=== PATIENT | female | born 1980 | race Two or more races ===

== ENCOUNTER 2022-11-19 03:32 | Emergency (ER) | payer BC, SELFPAY ==
[2022-11-19 03:38] VITALS: BP 137/97; PULSE 75; RESP 16; TEMP 36.8; O2SAT 99; BMI 43.0
--- NOTE | 2022-11-19 03:39 | ED_ITS ---
HPI - Dental/Oral General Chief complaint: Dental/Oral Stated complaint: DENTAL PAIN Time Seen by Provider: 11/19/22 03:39 History of Present Illness HPI Narrative: Patient presents to emergency department complaining of left lower dental pain over tooth 19. She states she had a cavity in 2 days ago she felt like the back part of it broke off. She is not having intense pain with air, high, or cold fluids. She has taken Motrin without any relief. She denies any facial swelling, or difficulty swallowing. She denies any fever, chills. She states she was at work and left because of the pain. She took Motrin at midnight. That has not given her enough relief. She is not able to see her dentist until 2 weeks from now. Related Data Previous Rx's Medication Instructions Recorded clindamycin HCl 300 mg capsule 300 mg PO Q8H 10 days #30 caps 11/19/22 hydrocodone 5 mg-acetaminophen 325 1 tab PO Q6H PRN pain 5 days #14 11/19/22 mg tablet tabs Allergies Allergy/AdvReac Type Severity Reaction Status Date / Time No Known Drug Allergies Allergy Verified 11/19/22 03:42 Review of Systems ROS Status of ROS 10 or more systems reviewed and unremarkable except as noted in history and below [facility] PFS Social History Smoking status: Never smoker Exam Narrative Exam Narrative: General: The patient is comfortable, alert and oriented x3, well appearing, non toxic in no apparent distress. Head: Atraumatic and normocephalic. Eyes: Normal conjunctiva ENT: The oropharynx is normal. No pharyngeal erythema, uvular edema, tonsillar exudates, asymmetry or trismus. Uvula is midline. Mouth is normal to inspection with the exception of a pain on percussion of the tooth #19 With evidence of dental caries and Dentin fracture.. There is no evidence of facial asymmetry or abscess formation. Floor of the mouth is soft. No tenderness in the submental or submandibular space. No tongue elevation or deviation. The patient has no evidence of periapical abscess, gingivitis or other acute pathology. Airway is patent. Neck: The neck demonstrates normal range of motion. No meningeals signs are present. No stridor. No masses or lymphandenopathy noted. Respiratory: No acute distress, lungs are clear to auscultation, no wheezing, rhonchi, or rales noted. No stridor or retractions are noted. Cardiovascular: Regular rate and rhythm Skin: The skin exam shows no evidence of rashes Neuro: Alert and oriented x4, normal speech Lymphatic: No cervical lymphadenopathy Constitutional Vital Signs, click to edit/add: Last Vital Signs Temp 98.3 F 11/19/22 03:38 Pulse 75 11/19/22 03:38 Resp 16 11/19/22 03:38 BP 137/97 H 11/19/22 03:38 Pulse Ox 99 11/19/22 03:38 O2 Del Method Room Air 11/19/22 03:38 Course Vital Signs Vital signs: Vital Signs Temperature 98.3 F 11/19/22 03:38 Pulse Rate 75 11/19/22 03:38 Respiratory Rate 16 11/19/22 03:38 Blood Pressure 137/97 H 11/19/22 03:38 Pulse Oximetry 99 11/19/22 03:38 Oxygen Delivery Method Room Air 11/19/22 03:38 Temperature 98.3 F 11/19/22 03:38 Pulse Rate 75 11/19/22 03:38 Respiratory Rate 16 11/19/22 03:38 Blood Pressure 137/97 H 11/19/22 03:38 Pulse Oximetry 99 11/19/22 03:38 Oxygen Delivery Method Room Air 11/19/22 03:38 MDM - Dental/Oral MDM Narrative Medical decision making narrative: Dental anesthesia was applied. Patient will be given a Onia to take at home when she arrives. She is advised not to drive or operate heavy machinery when taking Onia. She is to continue taking ibuprofen 800 mg every 8 hours as needed for pain. Given a prescription for clindamycin. She is stable for follow-up with dentist as an outpatient. I answered all questions. Discussed discharge instructions including standard anticipatory guidance and what should prompt a return to the emergency department, including if they get worse are not getting better or develops any new or concerning symptoms. I've given them specific time frame in which to follow-up, and who to follow-up with. The patient demonstrates understanding. Patient is nontoxic and stable for discharge with outpatient follow-up. This note was created with the assistance of a speech recognition program. Although the intention is to generate documents that actually reflects the content of the visit, no guarantees can be provided that every mistake has been identified and corrected by editing. Discharge Plan Discharge Chief Complaint: Dental/Oral Clinical Impression: Toothache, Fracture of tooth Patient Disposition: Home, Self-Care Time of Disposition Decision: 04:02 Condition: Good Mode of Transportation: Private Vehicle Prescriptions / Home Meds: New clindamycin HCl 300 mg capsule 300 mg PO Q8H 10 Days Qty: 30 0RF hydrocodone-acetaminophen 5-325 mg tablet 1 tab PO Q6H PRN (Reason: pain) 5 Days Qty: 14 0RF Instructions: Toothache (ED) Stand Alone Forms: Portal Instructions Referrals: Physician,Non-Staff, MD [Primary Care Provider] - 1 week
[2022-11-19] MEDS: BENZOCAINE 30 ML, lidocaine HCL 15 ML MM (04:25)
== END 2022-11-19 04:31 | disposition home or self-care (01) ==
PROVIDERS: Emergency Provider Emergency Medicine
DX: K08.89 Other specified disorders of teeth and supporting structures (principal); S02.5XXA Fracture of tooth (traumatic), initial encounter for closed fracture
CPT/HCPCS: 99283

== ENCOUNTER 2023-10-06 19:03 | Emergency (ER) | payer BC, SELFPAY ==
[2023-10-06 19:15] VITALS: BP 144/83; PULSE 90; TEMP 37; O2SAT 98; BMI 44.9
--- NOTE | 2023-10-06 19:19 | PC.NURSE ---
Red slightly raised rash to trunk and extremities, no oen areas, skin intacct.
--- NOTE | 2023-10-06 19:25 | ED_ITS ---
HPI - Allergic Reaction General Chief complaint: Allergic Reaction Stated complaint: RASH Time Seen by Provider: 10/06/23 19:22 Source: patient Mode of arrival: walk-in Limitations: no limitations History of Present Illness HPI narrative: patient presents complaining of rash that started on her arms and chest yesterday. Took Benadryl and feels it did not help and the rash has spread to her back. no dyspnea or throat symptoms. No nausea or vomiting Related Data Previous Rx's ?Medication ?Instructions ?Recorded clindamycin HCl 300 mg capsule 300 mg PO Q8H 10 days #30 caps 11/19/22 hydrocodone 5 mg-acetaminophen 325 1 tab PO Q6H PRN pain 5 days #14 11/19/22 mg tablet tabs Allergies Allergy/AdvReac Type Severity Reaction Status Date / Time No Known Drug Allergies Allergy Verified 10/06/23 19:15 Review of Systems ROS Status of ROS 10 or more systems reviewed and unremark able except as noted in history and below PFSH PFSH Social History Smoking status: Never smoker Exam Constitutional Vital Signs, click to edit/add: Last Vital Signs Temp 98.6 F 10/06/23 19:15 Pulse 90 10/06/23 19:15 Resp 18 10/06/23 19:15 BP 144/83 H 10/06/23 19:15 Pulse Ox 98 10/06/23 19:15 O2 Del Method Room Air 10/06/23 19:15 Common normals: no apparent distress, average body habitus, oriented x3, no limitations, healthy appearing, alert and well nourished [facility] Common normals: normocephalic and head/scalp atraumatic Eye Common normals: PERRL and EOMs intact bilaterally Respiratory Common normals: normal respiratory effort, no retractions, no use of accessory muscles and clear to auscultation bilaterally Cardio Common normals: regular rate, regular rhythm, S1 normal heart sound and S2 normal heart sound Extremity Other: spare erythematous 2-3mm macula lesion on her arms , V of her chest and her uper back Neuro Common normals: oriented x3, CN's II-XII intact bilaterally, moves all extremities and no focal motor deficits Psych Appearance: grossly normal Course Vital Signs Vital signs: Vital Signs Temperature 98.6 F 10/06/23 19:15 Pulse Rate 90 10/06/23 19:15 Respiratory Rate 18 10/06/23 19:15 Blood Pressure 144/83 H 10/06/23 19:15 Pulse Oximetry 98 10/06/23 19:15 Oxygen Delivery Method Room Air 10/06/23 19:15 Temperature 98.6 F 10/06/23 19:15 Pulse Rate 90 10/06/23 19:15 Respiratory Rate 18 10/06/23 19:15 Blood Pressure 144/83 H 10/06/23 19:15 Pulse Oximetry 98 10/06/23 19:15 Oxygen Delivery Method Room Air 10/06/23 19:15 MDM - Allergic Reaction MDM Narrative Medical decision making narrative: patient presents with rash that appears allergic. No systemic symptoms. Will treat with course of prednisone and recommend she follow up with her family d landy Discharge Plan Discharge Stand Alone Forms: Portal Instructions Chief Complaint: Allergic Reaction Clinical Impression: Urticaria Patient Disposition: Home, Self-Care Prescriptions / Home Meds: No Action clindamycin HCl 300 mg capsule 300 mg PO Q8H 10 Days Qty: 30 0RF hydrocodone-acetaminophen 5-325 mg tablet 1 tab PO Q6H PRN (Reason: pain) 5 Days Qty: 14 0RF Print Language: Malawian Instructions: Urticaria (ED) Additional Instructions: continue Benadryl 3 times a day and follow up with your doctor within the next 5 days Referrals: [facility] [Primary Care Provider] - 1 week
[2023-10-06] MEDS: PREDNISONE 20 MG TABLET 40 MG PO (19:38)
== END 2023-10-06 19:51 | disposition home or self-care (01) ==
PROVIDERS: Emergency Provider Internal Medicine
DX: L50.9 Urticaria, unspecified (principal)
CPT/HCPCS: 99283; J7512

== ENCOUNTER 2024-07-29 11:26 | Emergency (ER) | payer BC, SELFPAY ==
[2024-07-29 11:32] VITALS: BP 136/94; PULSE 86; TEMP 37; O2SAT 97; BMI 44.9
--- NOTE | 2024-07-29 11:42 | ED_ITS ---
HPI HPI - General Adult General Chief complaint: Skin/Abscess/Foreign Body Stated complaint: RASH Time Seen by Provider: 07/29/24 11:35 Source: patient Mode of arrival: walk-in Limitations: no limitations History of Present Illness HPI narrative: 44-year-old female presents for rash. It is pruritic and she has had this for multiple weeks. She saw her family doctor who put her on a cream in an urgent care who put her on prednisone. The prednisone seemed to make it better for a period of time but she ended the prednisone and the rash seems to be getting worse. She has a dermatology appointment in 2 weeks. She has not used any new products such as soaps or detergents. No new medications. She had been on Wegovy but that was stopped about a month ago. Related Data Previous Rx's ?Medication ?Instructions ?Recorded clindamycin HCl 300 mg capsule 300 mg PO Q8H 10 days # 30 caps 11/19/22 hydrocodone 5 mg-acetaminophen 325 1 tab PO Q6H PRN pa in 5 days #14 11/19/22 mg tablet tabs prednisone 10 mg tablet See Rx Instructions .Route 0 07/29/24 .COMPLEX #30 tabs Allergies Allergy/AdvReac Type Severity Reaction Status Date / Time No Known Drug Allergies Allergy Verified 07/29/24 11:31 Review of Systems ROS Narrative A ten point review of systems is negative except as noted above. PFSH PFSH Social History Smoking status: Never smoker Little interest or pleasure in doing things: not at all Feeling down, depressed, or hopeless: not at all Exam Narrative Exam Narrative: Nurses note and vital signs reviewed and patient is not hypoxic. General: The patient appears well and in no apparent distress. Patient is resting comfortably on cart. Skin: Warm, dry, no pallor noted. There is an erythematous rash present on many areas of the body. They are oval to round and some are several centimeters in diameter and some are a few millimeters. They are most prominent in the axilla and the groin area and below her breasts. It is also present on the back of the neck and to a lesser degree on her back; there is no specific pattern to them. Head: Normocephalic, atraumatic Eye: Normal conjunctiva, no drainage Ears, Nose, Mouth, and Throat: oral mucosa is moist. Nares patent. Cardiovascular: Regular Rate and Rhythm Respiratory: Patient is in no distress, no accessory muscle use, lungs are clear to auscultation, no wheezing, rales or rhonchi Back: non-tender GI: Soft and nontender Musculoskeletal: The patient has no evidence of calf tenderness, no pitting edema, symmetrical pulses noted bilaterally Neurological: A&O, normal speech Psychiatric: Cooperative Constitutional Vital Signs, click to edit/add: Last Vital Signs Temp 98.6 F 07/29/24 11:32 Pulse 86 07/29/24 11:32 Resp 18 07/29/24 11:32 BP 136/94 H 07/29/24 11:32 Pulse Ox 97 07/29/24 11:32 O2 Del Method Room Air 07/29/24 11:32 Course Vital Signs Vital signs: Vital Signs Temperature 98.6 F 07/29/24 11:32 Pulse Rate 86 07/29/24 11:32 Respiratory Rate 18 07/29/24 11:32 Blood Pressure 136/94 H 07/29/24 11:32 Pulse Oximetry 97 07/29/24 11:32 Oxygen Delivery Method Room Air 07/29/24 11:32 Temperature 98.6 F 07/29/24 11:32 Pulse Rate 86 07/29/24 11:32 Respiratory Rate 18 07/29/24 11:32 Blood Pressure 136/94 H 07/29/24 11:32 Pulse Oximetry 97 07/29/24 11:32 Oxygen Delivery Method Room Air 07/29/24 11:32 Discharge Plan Discharge Chief Complaint: Skin/Abscess/Foreign Body Clinical Impression: Rash Patient Disposition: Home, Self-Care Time of Disposition Decision: 11:41 Condition: Good Mode of Transportation: Private Vehicle Prescriptions / Home Meds: New prednisone 10 mg tablet See Rx Instructions .ROUTE .COMPLEX Qty: 30 0RF Rx Instructions: 4 by mouth daily for three days then 3 by mouth daily for three days then 2 by mouth daily for three days then 1 by mouth daily for three days No Action clindamycin HCl 300 mg capsule 300 mg PO Q8H 10 Days Qty: 30 0RF hydrocodone-acetaminophen 5-325 mg tablet 1 tab PO Q6H PRN (Reason: pain) 5 Days Qty: 14 0RF Print Language: Gibraltarian Instructions: Acute Rash (ED) Referrals: [facility] [Primary Care Provider, Unknown] - 1 week
[2024-07-29] MEDS: METHYLPREDNISOLONE SOD SUCC PF 125 MG/2 ML VIAL IM (11:53)
== END 2024-07-29 11:58 | disposition home or self-care (01) ==
PROVIDERS: Emergency Provider Emergency Medicine
DX: R21 Rash and other nonspecific skin eruption (principal)
CPT/HCPCS: 96372; 99284; J2919